=== PATIENT | female | born 1990 | race African-American/Black ===

== ENCOUNTER 2020-10-03 13:06 | Emergency (ER) | payer OTHER ==
[~2020-10-03 13:06] MED LIST: FLEXERIL5 MG PO; NORCO 5-325 TA1 EACH PO
== END 2020-10-03 14:40 | disposition home or self-care (01) ==
LOC: FER 13:06
DX: O9A.212 Injury, poisoning and certain other consequences of external causes complicating pregnancy, second trimester (principal); S61.011A Laceration without foreign body of right thumb without damage to nail, initial encounter; O99.332 Smoking (tobacco) complicating pregnancy, second trimester; F17.200 Nicotine dependence, unspecified, uncomplicated; Z23 Encounter for immunization; W23.1XXA Caught, crushed, jammed, or pinched between stationary objects, initial encounter; Y92.009 Unspecified place in unspecified non-institutional (private) residence as the place of occurrence of the external cause; Z3A.23 23 weeks gestation of pregnancy
CPT/HCPCS: 90471; 90715